=== PATIENT | female | born 1940 | race Caucasian/White ===

== ENCOUNTER 2017-07-22 13:07 | Inpatient (IN) | payer MEDICARE ==
[~2017-07-22] VITALS: Ht 154.9 cm; Wt 52.1 kg
[~2017-07-22 13:07] MED LIST: ACLI400A2 INH; ALBU8.5H8 INH; AMLO5TAB2 PO; BISM262T9 PO; BUDE10.2 INH; CEFD300C37 PO; CHOL20002 PO; CITA20TA5 PO; FLUT16SP INH; LEVO88TA4 PO; LISI-170 PO; OMEP40CA6 PO; OXYB5TAB PO; POTA10TA11 PO; TRAZ100T15 PO
[2017-07-22] MEDS ORDERED: SODIUM CHLORIDE 0.9% 1,000ML IVBOLUS ONE ×2 (13:30→16:00)
[2017-07-22] MEDS ORDERED: SODIUM CHLORIDE FLUSH 10ML SYR IVF ONE (13:30)
[2017-07-22] MEDS ORDERED: ALBUTEROL/IPRATROPIUM 2.5MG/0.5MG, 3 ML NPPB ONE (14:00)
[2017-07-22 14:09] LABS: MEAN CORPUSCULAR HEMOGLOBIN 28.7 pg (27.0-34.8); MEAN CORPUSCULAR HGB CONC 32.6 g/dL (32.4-35.8); MEAN PLATELET VOLUME 7.5 fL (7.4-10.4); PLATELET COUNT 580 x10^3/uL (130-400); RED BLOOD COUNT 5.32 x10^6/uL (3.82-5.3); RED CELL DISTRIBUTION WIDTH 13.6 % (9.6-15.2)
[2017-07-22 14:21] LABS: ALANINE AMINOTRANSFERASE 54 U/L (12-78); ALBUMIN 2.7 g/dL (3.4-5.0); ANION GAP 12 mmol/L (5-15); CALCIUM 8.8 mg/dL (8.5-10.1); CHLORIDE 105 mmol/L (98-107); CREATININE 2.59 mg/dL (0.55-1.02)
[2017-07-22 14:23] LABS: ALKALINE PHOSPHATASE 257 U/L (45-117); BILIRUBIN,TOTAL 0.6 mg/dL (0.2-1.0); TOTAL PROTEIN 7.4 g/dL (6.4-8.2)
[2017-07-22 14:25] LABS: INTERNATIONAL NORMALIZED RATIO 1.04 (0.93-1.1); PROTHROMBIN TIME 10.7 Seconds (9.6-11.5)
[2017-07-22] MEDS ORDERED: MEROPENEM 1 GM in SODIUM CHLORIDE 0.9% 100 ML IV ONE (14:30)
[2017-07-22] MEDS ORDERED: VANCOMYCIN PER PHARMACY MC PRN ×2 (14:30→16:30)
[2017-07-22] MEDS ORDERED: ALBUTEROL/IPRATROPIUM 2.5MG/0.5MG, 3 ML ONE (14:33)
[2017-07-22 14:44] LABS: MICROSCOPIC INDICATED
[2017-07-22 15:00] LABS: RAPID INFLUENZA A POSITIVE (Negative); RAPID INFLUENZA B Negative (Negative)
[2017-07-22] MEDS ORDERED: VANCOMYCIN 2,000 MG in SODIUM CHLORIDE 0.9% 500 ML IV ONE (15:00)
[2017-07-22] MEDS ORDERED: PHARMACOKINETIC CONSULTATION MC ONE (15:00)
[2017-07-22 15:05] LABS: CULTURE INDICATED? YES
[2017-07-22 15:25] LABS: MD YES
[2017-07-22 15:27] LABS: <RBC MORPHOLOGY> NORMAL; BAND#(MANUAL) 4.56 x10^3/uL; BANDS%(MANUAL) 12 % (0-7); EOS#(MANUAL) 0.38 x10^3/uL (0.0-0.4); EOS% (MANUAL) 1 % (1-7); LYMPH#(MANUAL) 0.76 x10^3/uL (1-3.4); LYMPHS% (MANUAL) 2 % (22-44); MONOS#(MANUAL) 2.28 x10^3/uL (0.3-2.7); MONOS% (MANUAL) 6 % (2-9); SEG#(MANUAL) 30.02 x10^3/uL (1.8-6.8); SEGS% (MANUAL) 79 % (42-75)
[2017-07-22 15:28] LABS: <PLATELET ESTIMATE> INCREASED; LARGE PLATELETS 1+
[2017-07-22] MEDS ORDERED: OSELTAMIVIR 75 MG CAPSULE PO ONE (15:30)
[2017-07-22] MEDS: SODIUM CHLORIDE 0.9% 1,000 ML IV SCH (16:09)
[2017-07-22] MEDS ORDERED: ONDANSETRON 2MG/ML, 2ML IVPush PRN (16:30)
[2017-07-22] MEDS ORDERED: DOCUSATE 100 MG CAPSULE PO PRN (16:30)
[2017-07-22] MEDS ORDERED: POLYETHYLENE GLYCOL 17 GM PACKET PO PRN (16:30)
[2017-07-22] MEDS ORDERED: ACETAMINOPHEN 325 MG TABLET PO PRN (16:30)
[2017-07-22] MEDS ORDERED: ENOXAPARIN 40 MG/0.4 ML SQ SCH (16:30)
[2017-07-22 17:05] VITALS: BP 111/78
[2017-07-22] MEDS ORDERED: PHARMACOKINETIC MONITORING MC PRN (18:00)
[2017-07-22] MEDS: HEPARIN 5,000 UNITS/ML, 1ML SQ SCH (18:19)
[2017-07-22 20:04] VITALS: BP 141/81
[2017-07-22] MEDS: OSELTAMIVIR 75 MG CAPSULE PO SCH (20:24)
[2017-07-22] MEDS: HYDROcodone/APAP 5/325 TABLET PO PRN (20:24)
[2017-07-22] MEDS: FLUTICASONE/VILANTEROL 200-25MCG/INH INH SCH (20:24)
[2017-07-22] MEDS: TRAZODONE 100MG TABLET PO SCH (20:24)
[2017-07-22] MEDS: BISMUTH SUBSALICYLATE 175 MG/5 ML MAX/STR PO SCH (20:24)
[2017-07-22] MEDS: AMLODIPINE 5 MG TABLET PO SCH (20:24)
[2017-07-22] MEDS: FLUTICASONE NASAL SPRAY 16GM NAS SCH (20:25)
[2017-07-22] MEDS ORDERED: IPRATROPIUM 0.5 MG/2.5 ML INHA NPPB SCH (21:00)
[2017-07-22] MEDS ORDERED: PINK BISMUTH 87.33 MG/5 ML ORAL SUSP PO SCH (21:00)
[2017-07-22] MEDS: morphine SULFATE 10 MG/ML, 1ML IVPush PRN (23:41)
[2017-07-23 01:47] VITALS: BP 138/77
[2017-07-23] MEDS: HEPARIN 5,000 UNITS/ML, 1ML SQ SCH ×3 (02:54→19:38)
[2017-07-23] MEDS: morphine SULFATE 10 MG/ML, 1ML IVPush PRN ×4 (02:54→19:41)
[2017-07-23] MEDS: SODIUM CHLORIDE 0.9% 1,000 ML IV SCH (04:18)
[2017-07-23 06:03] LABS: MEAN CORPUSCULAR HEMOGLOBIN 28.8 pg (27.0-34.8); MEAN CORPUSCULAR HGB CONC 33.1 g/dL (32.4-35.8); MEAN CORPUSCULAR VOLUME 86.9 fL (80-100); MEAN PLATELET VOLUME 7.7 fL (7.4-10.4); PLATELET COUNT 446 x10^3/uL (130-400); RED BLOOD COUNT 4.56 x10^6/uL (3.82-5.3); RED CELL DISTRIBUTION WIDTH 13.1 % (9.6-15.2)
[2017-07-23 06:10] LABS: CHLORIDE 111 mmol/L (98-107)
[2017-07-23 06:20] LABS: ANION GAP 9 mmol/L (5-15); CALCIUM 8.3 mg/dL (8.5-10.1); CREATININE 2.38 mg/dL (0.55-1.02)
[2017-07-23 06:29] LABS: MD YES
[2017-07-23 06:31] LABS: BANDS%(MANUAL) 4 % (0-7); LYMPHS% (MANUAL) 1 % (22-44); MONOS% (MANUAL) 2 % (2-9); SEG#(MANUAL) 37.11 x10^3/uL (1.8-6.8); SEGS% (MANUAL) 93 % (42-75)
[2017-07-23 06:32] LABS: <PLATELET ESTIMATE> INCREASED; <RBC MORPHOLOGY> NORMAL
[2017-07-23 06:33] LABS: LARGE PLATELETS 1+
[2017-07-23] MEDS: ALBUTEROL/IPRATROPIUM 2.5MG/0.5MG, 3 ML NPPB SCH ×4 (07:20→20:00)
[2017-07-23] MEDS: SENNA/DOCUSATE TABLET PO SCH (07:20)
[2017-07-23 07:32] VITALS: BP 152/90
[2017-07-23] MEDS: OSELTAMIVIR 75 MG CAPSULE PO SCH ×2 (07:34→19:38)
[2017-07-23] MEDS: LEVOTHYROXINE 88 MCG TABLET PO SCH (07:34)
[2017-07-23] MEDS: AMLODIPINE 5 MG TABLET PO SCH ×2 (07:34→19:39)
[2017-07-23] MEDS: CITALOPRAM 20 MG TABLET PO SCH (07:34)
[2017-07-23] MEDS: BISMUTH SUBSALICYLATE 175 MG/5 ML MAX/STR PO SCH ×2 (07:34→19:38)
[2017-07-23] MEDS: LORazepam 1MG TABLET PO PRN ×4 (07:34→22:48)
[2017-07-23] MEDS: HYDROcodone/APAP 5/325 TABLET PO PRN ×4 (07:34→22:49)
[2017-07-23] MEDS ORDERED: ALBUTEROL SULFATE 2.5 MG/3 ML NPPB SCH (09:00)
[2017-07-23] MEDS: FLUTICASONE/VILANTEROL 200-25MCG/INH INH SCH (11:54)
[2017-07-23 16:23] VITALS: BP 122/70
[2017-07-23] MEDS: TRAZODONE 100MG TABLET PO SCH (19:39)
[2017-07-23] MEDS: FLUTICASONE NASAL SPRAY 16GM NAS SCH (19:39)
[2017-07-23 20:55] VITALS: BP 168/81
[2017-07-24 00:15] VITALS: BP 123/77
[2017-07-24] MEDS: HEPARIN 5,000 UNITS/ML, 1ML SQ SCH ×3 (04:28→22:15)
[2017-07-24] MEDS: morphine SULFATE 10 MG/ML, 1ML IVPush PRN ×2 (04:28→15:51)
[2017-07-24] MEDS: LEVOTHYROXINE 88 MCG TABLET PO SCH (04:53)
[2017-07-24 05:38] LABS: MEAN CORPUSCULAR HEMOGLOBIN 28.6 pg (27.0-34.8); MEAN CORPUSCULAR HGB CONC 33.1 g/dL (32.4-35.8); MEAN CORPUSCULAR VOLUME 86.4 fL (80-100); MEAN PLATELET VOLUME 7.7 fL (7.4-10.4); PLATELET COUNT 360 x10^3/uL (130-400); RED BLOOD COUNT 4.42 x10^6/uL (3.82-5.3); RED CELL DISTRIBUTION WIDTH 13.6 % (9.6-15.2)
[2017-07-24 06:21] LABS: MD YES
[2017-07-24 06:22] LABS: <RBC MORPHOLOGY> NORMAL; BAND#(MANUAL) 1.75 x10^3/uL; BANDS%(MANUAL) 6 % (0-7); LYMPH#(MANUAL) 0.58 x10^3/uL (1-3.4); LYMPHS% (MANUAL) 2 % (22-44); MONOS#(MANUAL) 0.58 x10^3/uL (0.3-2.7); MONOS% (MANUAL) 2 % (2-9); SEG#(MANUAL) 26.28 x10^3/uL (1.8-6.8); SEGS% (MANUAL) 90 % (42-75)
[2017-07-24 06:23] LABS: <PLATELET ESTIMATE> ADEQUATE; LARGE PLATELETS 1+
[2017-07-24] MEDS: ALBUTEROL/IPRATROPIUM 2.5MG/0.5MG, 3 ML NPPB SCH ×4 (07:45→19:03)
[2017-07-24 08:00] VITALS: BP 138/70
[2017-07-24] MEDS: CITALOPRAM 20 MG TABLET PO SCH (08:15)
[2017-07-24] MEDS: BISMUTH SUBSALICYLATE 175 MG/5 ML MAX/STR PO SCH ×2 (08:15→22:14)
[2017-07-24] MEDS: AMLODIPINE 5 MG TABLET PO SCH ×2 (08:15→22:15)
[2017-07-24] MEDS: SENNA/DOCUSATE TABLET PO SCH (08:15)
[2017-07-24] MEDS: OSELTAMIVIR 75 MG CAPSULE PO SCH ×2 (08:15→22:15)
[2017-07-24] MEDS: FLUTICASONE/VILANTEROL 200-25MCG/INH INH SCH (08:17)
[2017-07-24] MEDS: HYDROcodone/APAP 5/325 TABLET PO PRN ×2 (10:07→22:16)
[2017-07-24] MEDS: LORazepam 1MG TABLET PO PRN (12:45)
[2017-07-24 13:49] VITALS: BP 121/70
[2017-07-24 19:52] VITALS: BP 101/60
[2017-07-24] MEDS: FLUTICASONE NASAL SPRAY 16GM NAS SCH (21:00)
[2017-07-24] MEDS ORDERED: VANCOMYCIN PMX 1GM/200ML 200 ML IV ONE (22:00)
[2017-07-24] MEDS: TRAZODONE 100MG TABLET PO SCH (22:15)
[2017-07-25] MEDS: morphine SULFATE 10 MG/ML, 1ML IVPush PRN ×2 (00:10→14:55)
[2017-07-25 03:24] VITALS: BP_SYST 147; BP_SYST 163; BP_DIAS 80; BP_DIAS 89
[2017-07-25] MEDS: HYDROcodone/APAP 5/325 TABLET PO PRN ×3 (04:06→22:38)
[2017-07-25] MEDS: HEPARIN 5,000 UNITS/ML, 1ML SQ SCH ×3 (05:57→22:38)
[2017-07-25] MEDS: LEVOTHYROXINE 88 MCG TABLET PO SCH (05:58)
[2017-07-25] MEDS: ALBUTEROL/IPRATROPIUM 2.5MG/0.5MG, 3 ML NPPB SCH ×2 (07:38→11:53)
[2017-07-25 07:58] VITALS: BP 155/69
[2017-07-25] MEDS: SENNA/DOCUSATE TABLET PO SCH (09:00)
[2017-07-25] MEDS: OSELTAMIVIR 75 MG CAPSULE PO SCH ×2 (09:31→22:38)
[2017-07-25] MEDS: AMLODIPINE 5 MG TABLET PO SCH ×2 (09:32→22:38)
[2017-07-25] MEDS: FLUTICASONE/VILANTEROL 200-25MCG/INH INH SCH (09:32)
[2017-07-25] MEDS: CITALOPRAM 20 MG TABLET PO SCH (09:32)
[2017-07-25] MEDS: BISMUTH SUBSALICYLATE 175 MG/5 ML MAX/STR PO SCH ×2 (09:32→22:38)
[2017-07-25 12:47] VITALS: BP 139/67
[2017-07-25 19:24] VITALS: BP 143/78
[2017-07-25] MEDS: FLUTICASONE NASAL SPRAY 16GM NAS SCH (22:38)
[2017-07-25] MEDS: TRAZODONE 100MG TABLET PO SCH (22:38)
[2017-07-26 04:35] VITALS: BP 123/85
[2017-07-26] MEDS: HEPARIN 5,000 UNITS/ML, 1ML SQ SCH ×3 (06:01→21:51)
[2017-07-26] MEDS: LEVOTHYROXINE 88 MCG TABLET PO SCH (06:01)
[2017-07-26 06:09] LABS: MEAN CORPUSCULAR HEMOGLOBIN 28.2 pg (27.0-34.8); MEAN CORPUSCULAR HGB CONC 32.6 g/dL (32.4-35.8); MEAN CORPUSCULAR VOLUME 86.6 fL (80-100); MEAN PLATELET VOLUME 7.5 fL (7.4-10.4); PLATELET COUNT 324 x10^3/uL (130-400); RED CELL DISTRIBUTION WIDTH 13.3 % (9.6-15.2)
[2017-07-26 06:30] LABS: BASOPHILS % (AUTO) 0 % (0-1); EOSINOPHILS # (AUTO) 0.01 x10^3/uL (0-0.4); EOSINOPHILS % (AUTO) 0 % (1-7); LYMPHOCYTES # (AUTO) 0.68 x10^3/uL (1-3.4); LYMPHOCYTES % (AUTO) 5 % (22-44); MD SCAN; MONOCYTES # (AUTO) 0.82 x10^3/uL (0.2-0.8); MONOCYTES % (AUTO) 7 % (2-9); NEUTROPHILS # (AUTO) 10.97 x10^3/uL (1.8-6.8); NEUTROPHILS % (AUTO) 88 % (42-75)
[2017-07-26 06:54] VITALS: BP 152/79
[2017-07-26] MEDS ORDERED: ALBUTEROL/IPRATROPIUM 2.5MG/0.5MG, 3 ML NPPB PRN (07:00)
[2017-07-26] MEDS: SENNA/DOCUSATE TABLET PO SCH (08:04)
[2017-07-26] MEDS: HYDROcodone/APAP 5/325 TABLET PO PRN ×2 (08:20→13:44)
[2017-07-26] MEDS: FLUTICASONE/VILANTEROL 200-25MCG/INH INH SCH (09:00)
[2017-07-26] MEDS: AMLODIPINE 5 MG TABLET PO SCH ×2 (09:00→21:51)
[2017-07-26] MEDS: OSELTAMIVIR 75 MG CAPSULE PO SCH ×2 (09:00→21:51)
[2017-07-26] MEDS: CITALOPRAM 20 MG TABLET PO SCH (09:00)
[2017-07-26] MEDS: BISMUTH SUBSALICYLATE 175 MG/5 ML MAX/STR PO SCH ×2 (09:00→21:51)
[2017-07-26 12:51] VITALS: BP 153/85
[2017-07-26 20:56] VITALS: BP 148/84
[2017-07-26] MEDS ORDERED: VANCOMYCIN PMX 1GM/200ML 200 ML IV ONE (21:30)
[2017-07-26] MEDS: TRAZODONE 100MG TABLET PO SCH (21:51)
[2017-07-26] MEDS: FLUTICASONE NASAL SPRAY 16GM NAS SCH (21:51)
[2017-07-27] MEDS: HYDROcodone/APAP 5/325 TABLET PO PRN ×2 (00:39→10:04)
[2017-07-27 01:22] VITALS: BP 135/74
[2017-07-27] MEDS: LEVOTHYROXINE 88 MCG TABLET PO SCH (05:46)
[2017-07-27] MEDS: HEPARIN 5,000 UNITS/ML, 1ML SQ SCH (05:47)
[2017-07-27 08:56] VITALS: BP 133/75
[2017-07-27] MEDS: SENNA/DOCUSATE TABLET PO SCH (09:35)
[2017-07-27] MEDS: FLUTICASONE/VILANTEROL 200-25MCG/INH INH SCH (09:53)
[2017-07-27] MEDS: AMLODIPINE 5 MG TABLET PO SCH (09:54)
[2017-07-27] MEDS: BISMUTH SUBSALICYLATE 175 MG/5 ML MAX/STR PO SCH (09:54)
[2017-07-27] MEDS: OSELTAMIVIR 75 MG CAPSULE PO SCH (09:54)
[2017-07-27] MEDS: CITALOPRAM 20 MG TABLET PO SCH (09:54)
[2017-07-27] MEDS: morphine SULFATE 10 MG/ML, 1ML IVPush PRN (14:22)
[2017-07-27 15:01] VITALS: BP 127/88
[2017-07-27] MEDS: MORPHINE SULFATE 4 MG/ML, 1ML IVPush PRN ×3 (16:36→21:51)
[2017-07-27 17:51] VITALS: BP 124/75
[2017-07-27] MEDS: TRAZODONE 100MG TABLET PO SCH (21:52)
[2017-07-28] MEDS: MORPHINE SULFATE 4 MG/ML, 1ML IVPush PRN ×2 (03:06→07:40)
[2017-07-28] MEDS: morphine SULFATE 10 MG/ML, 1ML IVPush PRN (05:39)
[2017-07-28 07:14] VITALS: BP 120/78
[2017-07-28] MEDS ORDERED: morphine SULFATE 125 MG in SODIUM CHLORIDE 0.9% 237.5 ML IV PRN (07:30)
[2017-07-28] MEDS: SENNA/DOCUSATE TABLET PO SCH (07:40)
[2017-07-28] MEDS: TRAZODONE 100MG TABLET PO SCH (21:18)
[2017-07-29] MEDS: LORazepam 2 MG/ML, 1ML IVPush PRN ×3 (03:43→22:51)
[2017-07-29] MEDS: SENNA/DOCUSATE TABLET PO SCH (09:00)
[2017-07-29] MEDS: TRAZODONE 100MG TABLET PO SCH (21:00)
[2017-07-30] MEDS: LORazepam 2 MG/ML, 1ML IVPush PRN (04:39)
[2017-07-30] MEDS: SENNA/DOCUSATE TABLET PO SCH (09:00)
[2017-07-30] MEDS: TRAZODONE 100MG TABLET PO SCH (19:56)
[2017-07-30] MEDS: ATROPINE OPHTH SOLN 1%, 5ML BC PRN (19:57)
[2017-07-31] MEDS: SENNA/DOCUSATE TABLET PO SCH (09:00)
[2017-07-31] MEDS: ATROPINE OPHTH SOLN 1%, 5ML BC PRN (17:45)
[2017-07-31] MEDS: TRAZODONE 100MG TABLET PO SCH (21:00)
[2017-08-01] MEDS: ATROPINE OPHTH SOLN 1%, 5ML BC PRN ×4 (01:09→17:31)
[2017-08-01] MEDS: SENNA/DOCUSATE TABLET PO SCH (08:24)
== END 2017-08-01 22:54 | disposition expired | DRG 853 ==
LOC: ED 15:23 → EDIP 15:30 → SUATTDRO 15:54 → 4EST 16:55 → 3NW 07-27 17:55
PROVIDERS: ADMIT Family Medicine; ATTEND Family Medicine
PROC: 0T9B70Z Drainage of Bladder with Drainage Device, Via Natural or Artificial Opening (ICD-10-PCS; principal; 2017-07-22)
PROC: 0JQJ0ZZ Repair Right Hand Subcutaneous Tissue and Fascia, Open Approach (ICD-10-PCS; 2017-07-22)
PROC: 0JQG0ZZ Repair Right Lower Arm Subcutaneous Tissue and Fascia, Open Approach (ICD-10-PCS; 2017-07-22)
DX: A41.9 Sepsis, unspecified organism (principal); E43 Unspecified severe protein-calorie malnutrition; I46.9 Cardiac arrest, cause unspecified; J10.00 Influenza due to other identified influenza virus with unspecified type of pneumonia; J96.21 Acute and chronic respiratory failure with hypoxia; N17.0 Acute kidney failure with tubular necrosis; R65.21 Severe sepsis with septic shock; J18.9 Pneumonia, unspecified organism; F03.90 Unspecified dementia, unspecified severity, without behavioral disturbance, psychotic disturbance, mood disturbance, and anxiety; J44.0 Chronic obstructive pulmonary disease with (acute) lower respiratory infection; I10 Essential (primary) hypertension; Z68.21 Body mass index [BMI] 21.0-21.9, adult; K44.9 Diaphragmatic hernia without obstruction or gangrene; M41.9 Scoliosis, unspecified; Z51.5 Encounter for palliative care; Z66 Do not resuscitate; Z82.3 Family history of stroke; Z86.14 Personal history of Methicillin resistant Staphylococcus aureus infection; Z87.891 Personal history of nicotine dependence; Z90.710 Acquired absence of both cervix and uterus; Z98.42 Cataract extraction status, left eye; Z98.41 Cataract extraction status, right eye; Z88.1 Allergy status to other antibiotic agents; Z88.5 Allergy status to narcotic agent; Z88.0 Allergy status to penicillin; Z91.013 Allergy to seafood; Z88.8 Allergy status to other drugs, medicaments and biological substances; Z91.048 Other nonmedicinal substance allergy status
CPT/HCPCS: 12004; 36415; 71010; 80048; 80053; 80202; 81001; 83605; 83735; 84145; 85025; 85610; 85730; 87040; 87086; 87400; 93005; 94640; 96365; J1644; J2185; J2270; J3370; J7620; J7644; J2060; J7030; J7040